=== PATIENT | female | born 1960 | race Caucasian/White ===

== ENCOUNTER 2017-01-02 12:55 | Inpatient (IN) | payer OTHER ==
--- NOTE | ~2017-01-02 | DS ---
Unit #: [id number] #: [id number] Patient: YULIANA RO [id number] [facility] [address] [place] [address] [id number] MR#: [id number] NAME: YULIANA RO ROOM: [facility] Age: 56 Sex: F Admission Date: 01/02/2017 : 1960 Discharge Date: 01/09/2017 Attending Physician: Hilton Wallace M.D. DISCHARGE SUMMARY REASON FOR ADMISSION Hallucination. DIAGNOSTIC STUDIES LABORATORY RESULTS: Remarkable for glucose 111 and hematocrit 46.2. HOSPITAL COURSE The patient was admitted to inpatient unit on 01/02/2017 and discharged on 01/09/2017. The patient was treated on the inpatient unit with group therapy, individual therapy, and medication management. The patient responded well with the above modalities of treatment. Subsequently, the patient was discharged with a plan to follow up in outpatient program. DISCHARGE MEDICATIONS Seroquel 100 mg at bedtime for mood stabilization and psychosis, Lamictal 100 mg once daily for mood stabilization, Lotensin 10 mg daily for hypertension, Pepcid 20 mg daily for GERD, Abilify 10 mg b.i.d. for psychosis, and Oretic 25 mg daily for hypertension. DISCHARGE DIAGNOSES Psychiatric: Schizophrenia, chronic paranoid type. Secondary diagnosis: Deferred. Medical diagnosis: Hypertension. Stressors: Psychosocial stressors. DISCHARGE INSTRUCTIONS The patient is to follow up in outpatient clinic as per director of social media marketing. CONDITION ON DISCHARGE The patient was pleasant and cooperative. Denied any psychotic symptom or any suicidal ideation. PROGNOSIS Guarded. DIET AND ACTIVITY As tolerated. Dictated by... Unit #: [id number] #: [id number] Patient: YULIANA RO Guerrero Mckay/aamir TD: 01/10/2017 21:42 JOB #: [id number] DISCHARGE SUMMARY Page 1 of 1 X Hilton Wallace MD X DISCHARGE SUMMARY
--- NOTE | ~2017-01-02 | HP ---
Unit #: [id number] #: [id number] Patient: YULIANA RO [id number] [place] [address] [id number] MR#: [id number] NAME: YULIANA RO ROOM: [facility] Age: 56 Sex: F Admission Date: 01/02/2017 : 1960 Attending Physician: Hilton Wallace M.D. Admitting Physician: Hilton Wallace M.D. Primary Care Physician: Generic Doctor Not In System HISTORY AND PHYSICAL HISTORY OF PRESENT ILLNESS Yuliana is a 56 year old, admitted to 2 [facility] because of recent incoherent speech pattern observed by her family. PAST MEDICAL HISTORY 1. High blood pressure. 2. Chronic obstructive pulmonary disease. PAST SURGICAL HISTORY Cholecystectomy. ALLERGIES Penicillin. SOCIAL HISTORY She denies cigarettes, alcohol, or illicit drug use. FAMILY HISTORY Medically noncontributory. REVIEW OF SYSTEMS She does not answer questions appropriately. There are no reports of nausea, vomiting, or diarrhea. She has no cough or increased temperature. No complaints of shortness of breath or indications of chest pain. CURRENT MEDICATIONS 1. Pepcid 20 mg q.h.s. 2. Seroquel 100 mg q.h.s. 3. Trazodone 75 mg q.h.s., p.r.n. 4. Milk of magnesia p.r.n. 5. Maalox p.r.n. 6. Tylenol p.r.n. 7. Lotensin 10 mg daily 8. Lamictal 100 mg daily PHYSICAL EXAMINATION GENERAL: Alert, obese, no apparent distress. VITAL SIGNS: Blood pressure 124/74, heart rate 80, respirations 16, temperature 98.6. WEIGHT: 180 pounds. HEIGHT: 5 feet 4 inches. SKIN: Warm and dry without rash or lesion. HEENT: Normocephalic. TMs not viewed. Oral and nasal passages clear. Unit #: [id number] #: [id number] Patient: YULIANA RO Conjunctivae clear. PERRLA. EOMs intact. NECK: Supple without lymphadenopathy or thyromegaly. HEART: Regular rate and rhythm without murmur. LUNGS: Clear. ABDOMEN: Soft, nontender. : Not done. EXTREMITIES: No evidence of cyanosis, clubbing or edema. Moves all without focal deficit. NEUROLOGICAL: Unable to complete extended exam. She does move all extremities without focal deficit. 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 IMPRESSION Psychiatric admission. RECOMMENDATIONS Psychiatric, per psychiatrist. MEDICAL I see no contraindications to participating in facility's activities. MEDICAL PROGNOSIS Good. MEDICAL CONDITION Stable. Dictated by... Keira Perez P.A.-C. for Guerrero Kumar/spencer TD: 01/03/2017 11:07 JOB #: [id number] HISTORY AND PHYSICAL Page 1 of 1 X Keira Perez X HISTORY AND PHYSICAL
--- NOTE | ~2017-01-02 | PN ---
Unit #: [id number] #: [id number] Patient: YULIANA RO [id number] [facility] [address] [place] [address] [id number] I MR#: [id number] NAME: YULIANA RO ROOM: [facility] Age: 56 Sex: F Admission Date: 01/02/2017 : 1960 Attending Physician: Hilton Wallace M.D. Admitting Physician: Hilton Wallace M.D. Primary Care Physician: Generic Doctor Not In System [facility] PROGRESS NOTES DATE 01/07/2017 DISCUSSION Yuliana Ro is a 56-year-old female, seen on 01/07/2017. The patient interviewed, chart reviewed, and obtained information from the nursing staff. The patient was compliant and cooperative. Mood sad and dysphoric. The patient reports medication is helping her, making progress. The patient was able to participate in programming, denied any side effects from medication. REVIEW OF SYSTEMS Complete review of systems unremarkable. MENTAL STATUS EXAMINATION General appearance: Patient dressed casually. Attention span and concentration, fair. Oriented to place and person. Mood and affect, sad and dysphoric. Speech, monotone. Thought process, concrete, guarded, and paranoid. The patient denied any thoughts of harming self or others. Recent and remote memory, poor. Insight and judgment, poor. DIAGNOSES 1. Psychosis, NOS. 2. Rule out schizophrenia. ASSESSMENT/PLAN Advised to continue with the current medication and therapeutic protocol and will monitor response to medication, and make further adjustment of medication if needed. Consider further adjustment of medication. Dictated by... Guerrero Mckay/spencer TD: 01/09/2017 08:08 JOB #: [id number] Unit #: [id number] #: [id number] Patient: YULIANA RO [facility] PROGRESS NOTES Page 1 of 1 X Hilton Wallace MD PROGRESS NOTE
--- NOTE | ~2017-01-02 | PN ---
Unit #: [id number] #: [id number] Patient: YULIANA RO [id number] [facility] [address] [place] [address] [id number] I MR#: [id number] NAME: YULIANA RO ROOM: [facility] Age: 56 Sex: F Admission Date: 01/02/2017 : 1960 Attending Physician: Hilton Wallace M.D. Admitting Physician: Hilton Wallace M.D. Primary Care Physician: Sai Doctor Not In System [facility] PROGRESS NOTES DATE OF SERVICE: 01/05/2017 DISCUSSION Ms. Yuliana Ro is a 46-year-old female. The patient reports she is feeling better. Medication is helping her currently on Abilify 10 mg b.i.d., Pepcid, Seroquel 100 mg at bedtime, and trazodone. The patient also takes Lotensin and Lamictal. The patient is tolerating medication fairly well, making progress, but still isolative, guarded, paranoid. REVIEW OF SYSTEMS Complete review of systems unremarkable. MENTAL STATUS EXAMINATION General appearance, the patient dressed casually. Attention span and concentration, fair, guarded, paranoid. Mood and affect, labile. Speech, monotone. Thought process, concrete. The patient denied any thoughts of harming self or others, but guarded, paranoid. Recent and remote memory, poor. Insight and judgment, poor. DIAGNOSIS Schizoaffective disorder. ASSESSMENT AND PLAN Advised to continue with current medication and therapeutic protocol. We will monitor response to medication and make further adjustment of medication. Dictated by... Guerrero Mckay/aamir TD: 01/05/2017 19:15 JOB #: [id number] Unit #: [id number] #: [id number] Patient: YULIANA RO PROGRESS NOTES Page 1 of 1 X Hilton Wallace MD PROGRESS NOTE
--- NOTE | ~2017-01-02 | PA ---
Unit #: [id number] #: [id number] Patient: YULIANA RO [id number] [facility] [address] [place] [address] [id number] I MR#: [id number] NAME: YULIANA RO ROOM: [facility] Age: 56 Sex: F Admission Date: 01/02/2017 : 1960 Date of Assessment: 01/03/2017 Attending Physician: Hilton Wallace M.D. Admitting Physician: Hilton Wallace M.D. Primary Care Physician: Generic Doctor Not In System PSYCHIATRIC ASSESSMENT INFORMANTS The patient reliability, fair informant and chart reliability, good. CHIEF COMPLAINT Depression. HISTORY OF PRESENT ILLNESS Yuliana Ro is a 56-year-old female, seen on 2-[facility]. The patient has a history of previous inpatient treatment at [facility] and outpatient with Dr. Cook. The patient lives at home with her . Reported diagnosed with schizophrenia. The patient reports taking multiple medications for her schizophrenia as well as for memory. The patient reports needing medication to be changed. The patient was not clear in giving history. The patient's reported that the patient being off from baseline for the past several months. reported that the patient is not making any sense, not being able to recall anything, not being able to be left alone due to safety. The patient's reported medication has been changed and does not feel that she is still doing any good. The patient's is concerned about the patient's behavior and that the patient is not doing well. The patient unable to give any coherent history. The patient seems to be attending to internal stimuli, thoughts disorganized. Denied any current suicidal or homicidal ideation. The patient needing inpatient admission at this time for worsening of psychotic symptom and disorganized behavior. PAST PSYCHIATRIC HISTORY Remarkable for history of inpatient treatment at [facility] and outpatient followup. FAMILY HISTORY AND SOCIAL HISTORY The patient lives with her and carries a diagnosis of schizophrenia. Family psychiatric illness is remarkable for history of substance abuse and mental illness on both sides of the family. MEDICAL HISTORY Remarkable for history of hypertension. Musculoskeletal; muscle strength and tone, no atrophy or abnormal movement. Gait normal. MEDICATION HISTORY The patient is currently on Namenda, Lamictal, Pepcid 20 mg daily, Seroquel 100 mg at bedtime, trazodone 75 mg q.h.s. p.r.n. for sleep, and Lotensin 10 mg daily. Unit #: [id number] #: [id number] Patient: YULIANA RO ALLERGIES No known drug allergies. SUBSTANCE ABUSE HISTORY None. REVIEW OF SYSTEMS HEENT: Eyes, clear. Ears, nose, mouth, and throat; clear. CARDIOVASCULAR: Unremarkable. RESPIRATORY: Unremarkable. GI: Unremarkable. : Unremarkable. SKIN: Unremarkable. LYMPH NODE: Unremarkable. NEUROLOGIC: Unremarkable. ENDOCRINE: Unremarkable. HEMATOLOGIC: Unremarkable. ALLERGIC/IMMUNOLOGIC: Unremarkable. MUSCULOSKELETAL: Muscle strength and tone, no atrophy or abnormal movement. Gait normal. MENTAL STATUS EXAMINATION CONSTITUTIONAL: Measurement of vital signs; temperature 98.5, heart rate 82, respiratory rate 17, blood pressure 125/74, height 5 feet 4 inches, and weight 180 pounds. GENERAL APPEARANCE: The patient dressed casually. The patient did not show any facial deformity. MUSCULOSKELETAL: Please see above. PSYCHIATRIC EXAMINATION Description of speech; regular rate, normal volume, normal articulation, coherent, and spontaneous. Description of thought process, goal directed. Description of association, intact. Description of abnormal psychotic thinking; the patient is delusional, paranoid, and attending to internal stimuli, but denied any thoughts of harming self or others. Description of the patient's judgment: Concerning everyday activity, poor. Social situation, poor. Concerning psychiatric condition, poor. Complete mental status examination; oriented in time, place, and person. Recent and remote memory, poor. Attention span and concentration, poor. Language, able to name object and repeat phrases. Fund of knowledge, fair. Mood and affect, sad and dysphoric. Insight and judgment, fair to poor. ASSETS AND LIABILITIES Assets, the patient is articulate and able to take care of her ADL. Liability, depression and psychosis. ADMITTING DIAGNOSES Psychiatric: Psychosis, not otherwise specified, F29.0; rule out schizophrenia, F20.0; and rule out cognitive deficit. Secondary diagnosis: Deferred. Medical diagnoses: Gastroesophageal reflux disease and hypertension. Stressors: Psychosocial stressors. Unit #: [id number] #: [id number] Patient: YULIANA RO PSYCHIATRIC PLAN AND TREATMENT GOAL AND DISCHARGE PLAN 1. Advised to admit the patient on the inpatient unit. Provide safe, supportive, and structured environment. 2. Ordered labs; CBC, CMP, UA, and UDS. 3. Advised to continue with current medication with a plan to stop Namenda. If needed, consider further adjustment of medication and consider alternative medication such as Abilify, so that medication can be changed to injectable long-acting medication. The patient to attend all the programing, group therapy, individual therapy, and medication management. If needed, consider further adjustment of medication and family therapy. TREATMENT GOAL To attain euthymic mood, gain insight into her problem, learn coping skills, and control psychotic symptom. DISCHARGE PLAN Plan to stabilize the patient and consider followup in outpatient program. ESTIMATED LENGTH OF STAY 2 weeks. Dictated by... Hilton Wallace M.D. CHRISTIANO/aamir TD: 01/03/2017 16:05 JOB #: [id number] PSYCHIATRIC ASSESSMENT Page 1 of 1 X Hilton Wallace MD X PSYCHIATRIC ASSESSMENT
--- NOTE | ~2017-01-02 | PN ---
Unit #: [id number] #: [id number] Patient: YULIANA RO [id number] [facility] [address] [place] [address] [id number] I MR#: [id number] NAME: YULIANA RO ROOM: [facility] Age: 56 Sex: F Admission Date: 01/02/2017 : 1960 Attending Physician: Hilton Wallace M.D. Admitting Physician: Hilton Wallace M.D. Primary Care Physician: Generic Doctor Not In System [facility] PROGRESS NOTES DATE OF SERVICE: 01/03/2017 DISCUSSION Yuliana Ro is a 56-year-old female. The patient interviewed, chart reviewed, and obtained information from nursing staff. The patient was compliant and cooperative. Mood was sad, dysphoric, flat affect, guarded. The patient was somewhat disorganized, disorganized thought process, guarded. Complete review of systems unremarkable. MENTAL STATUS EXAMINATION General appearance, the patient dressed in hospital attire. Attention span and concentration, poor. Oriented in place and person. Mood and affect; flat, sad, dysphoric. Speech; monotone, long pauses. Thought process; circumstantial, guarded. The patient denied any thoughts of harming self or others, but attending to internal stimuli, disorganized behavior, disorganized thought process. Recent and remote memory, poor. Insight and judgment, poor. DIAGNOSES 1. Psychosis, not otherwise specified. 2. Rule out schizophrenia, chronic paranoid type. 3. Rule out cognitive deficit. ASSESSMENT AND PLAN Advised to continue with current medication and therapeutic protocol. We will monitor response to medication and plan to consider switching the patient from Seroquel to Abilify so that the patient can be switched to long-acting medication. Dictated by... Guerrero Mckay/jasminel TD: 01/03/2017 17:20 JOB #: [id number] Unit #: [id number] #: [id number] Patient: YULIANA RO PROGRESS NOTES Page 1 of 1 X Hilton Wallace MD PROGRESS NOTE
--- NOTE | ~2017-01-02 | PN ---
Unit #: [id number] #: [id number] Patient: YULIANA RO [id number] [facility] [address] [place] [address] [id number] I MR#: [id number] NAME: YULIANA RO ROOM: [facility] Age: 56 Sex: F Admission Date: 01/02/2017 : 1960 Attending Physician: Hilton Wallace M.D. Admitting Physician: Guerrero Mckay PROGRESS NOTES DATE OF SERVICE: 01/06/2017 DISCUSSION Yuliana Ro is a 56-year-old female, seen on 01/06/2017. The patient interviewed, chart reviewed, and obtained information from nursing staff. The patient was compliant and cooperative. Mood was sad, dysphoric, flat affect, guarded. The patient still having paranoia, but making progress. REVIEW OF SYSTEMS Complete review of systems unremarkable. MENTAL STATUS EXAMINATION General appearance, the patient dressed casually. Attention span and concentration, fair. Oriented in place and person. Mood and affect were sad, dysphoric, and guarded. The patient denied any thoughts of harming self or others or any psychotic symptom, but still guarded and paranoid. Insight and judgment, fair to poor. DIAGNOSIS Schizoaffective disorder, bipolar type. ASSESSMENT AND PLAN Advised to continue with current medication and therapeutic protocol. We will monitor response to medication and make further adjustment of medication. Dictated by... Hilton Wallace M.D. SZC/jasminel TD: 01/08/2017 01:16 JOB #: [id number] Unit #: [id number] #: [id number] Patient: YULIANA RO PROGRESS NOTES Page 1 of 1 X Hilton Wallace MD PROGRESS NOTE
--- NOTE | ~2017-01-02 | PN ---
Unit #: [id number] #: [id number] Patient: YULIANA RO [id number] [facility] [address] [place] [address] [id number] I MR#: [id number] NAME: YULIANA RO ROOM: [facility] Age: 56 Sex: F Admission Date: 01/02/2017 : 1960 Attending Physician: Hilton Wallace M.D. Admitting Physician: Hilton Wallace M.D. Primary Care Physician: Generic Doctor Not In System [facility] PROGRESS NOTES DATE OF SERVICE: 01/04/2017 DISCUSSION Ms. Yuliana Ro is a 56-year-old female. The patient interviewed, chart reviewed, and obtained information from nursing staff. The patient was compliant and cooperative. Mood was sad, dysphoric, flat affect, guarded, seclusive. Tolerating medication fairly well. Complete review of systems unremarkable. MENTAL STATUS EXAMINATION General appearance, the patient dressed casually. Attention span and concentration, fair. Oriented in place and person. Mood and affect were labile, guarded. Speech, monotone. Thought process; concrete, guarded, paranoid, still having somewhat disorganized thought process, but reports medication is helping her. Recent and remote memory, poor. Insight and judgment, poor. DIAGNOSES 1. Psychosis, not otherwise specified. 2. History of dementia. ASSESSMENT AND PLAN Advised to continue with current medication and therapeutic protocol. We will monitor response to medication and make further adjustment of medication. Dictated by... Guerrero Mckay/aamir TD: 01/04/2017 19:08 JOB #: [id number] Unit #: [id number] #: [id number] Patient: YULIANA RO PEAMICHAEL PROGRESS NOTES Page 1 of 1 X Hilton Wallace MD PROGRESS NOTE
--- NOTE | ~2017-01-02 | PN ---
Unit #: [id number] #: [id number] Patient: YULIANA RO [id number] [facility] [address] [place] [address] [id number] I MR#: [id number] NAME: YULIANA RO ROOM: [facility] Age: 56 Sex: F Admission Date: 01/02/2017 : 1960 Attending Physician: Hilton Wallace M.D. Admitting Physician: Hilton Wallace M.D. Primary Care Physician: Generic Doctor Not In System [facility] PROGRESS NOTES DATE 01/08/2017 DISCUSSION Ms. Yuliana Ro is a 56-year-old female seen on 01/08/2017. Patient interviewed. Chart reviewed. Obtained information from nursing staff. Patient reports making progress. Decrease in anxiety, depression. Medication is helping, maintaining safe behavior. Complete review of system unremarkable. MENTAL STATUS EXAMINATION General appearance, patient dressed casually. Attention span, concentration fair. Oriented in place and person. Mood and affect was labile. Speech monotone. Thought process concrete. Patient denied any thoughts of harming self or others. Denied any psychotic symptoms but seclusive, isolative. Recent and remote memory poor. Insight and judgement poor. DIAGNOSES 1. Psychosis NOS. 2. Rule out schizophrenia. ASSESSMENT/PLAN Continue with the current medication and therapeutic protocol. If needed, consider further adjustment of medication. Dictated by... Guerrero Mckay/juan TD: 01/09/2017 17:15 JOB #: [id number] Unit #: [id number] #: [id number] Patient: YULIANA RO PROGRESS NOTES Page 1 of 1 X Hilton Wallace MD PROGRESS NOTE
[2017-01-03 09:38] LABS: URINE APPEARANCE CLEAR; URINE BILIRUBIN NEG (NEG); URINE BLOOD NEG (NEG); URINE COLOR YELLOW; URINE GLUCOSE NEG (NEG); URINE KETONE NEG (NEG); URINE LEUKOCYTE ESTERASE NEG (NEG); URINE NITRATE NEG (NEG); URINE PH 6.5 (5-8); URINE PROTEIN NEG (NEG); URINE SPECIFIC GRAVITY 1.016 (1.003-1.035); URINE UROBILINOGEN 0.2 MG/DL (NEG)
[2017-01-03 09:39] LABS: BASOPHIL# 0.1 X10e3 (0-0.3); BASOPHIL% 1.4 % (0-2.5); EOSINOPHIL# 0.1 X10e3 (0-0.7); EOSINOPHIL% 1.5 % (0.0-7.0); HEMATOCRIT 46.2 % (35.0-45.0); HEMOGLOBIN 15.1 gm/dL (12.0-16.0); LYMPHOCYTE# 1.6 X10e3 (1.0-3.5); LYMPHOCYTE% 25.9 % (17.0-45.0); MEAN CELL VOLUME 96.6 FL (83-96); MEAN CORPUSCULAR HEMOGLOBIN 31.6 PG (28-34); MEAN CORPUSCULAR HGB CONC 32.7 g/dL (30-36); MONOCYTE# 0.5 X10e3 (0-1.0); MONOCYTE% 7.6 % (3.0-12.0); NEUTROPHIL# 3.9 X10e3 (1.5-7.1); NEUTROPHIL% 63.6 % (40-75); PLATELET COUNT 182 X10e3 (140-420); RED BLOOD COUNT 4.78 X10e (3.90-5.30); WHITE BLOOD COUNT 6.2 X10e3 (4.0-10.5)
[2017-01-03 09:48] LABS: DIFF IND NO
[2017-01-03 10:01] LABS: THYROID STIMULATING HORMONE 1.2 uIU/ml (0.34-5.60)
[2017-01-03 10:09] LABS: FREE THYROXIN (T4) 0.9 ng/dL (0.58-1.64)
[2017-01-03 10:21] LABS: AMPHETAMINE NEG (NEG); BARBITURATES NEG (NEG); BENZODIAZEPINES NEG (NEG); COCAINE NEG (NEG); MARIJUANA NEG (NEG); OPIATES NEG (NEG); TRICYCLIC ANTIDEPRESSANTS NEG (NEG); U METHADONE NEG (NEG)
[2017-01-03 10:24] LABS: ALBUMIN SERUM 4.1 g/dL (3.5-5.0); BILIRUBIN,TOTAL 0.5 mg/dL (0.2-2.0); BUN/CREATININE RATIO 17.5; CALCIUM SERUM 9.7 mg/dL (8.4-10.2); CREATININE SERUM 0.8 mg/dL (0.6-1.4); GLOM FILT RATE Estimated 81.9 mL/min (>60); POTASSIUM 4.1 mmol/L (3.5-5.1); PROTEIN TOTAL SERUM 6.9 g/dL (6.0-8.3)
== END 2017-01-09 11:30 | disposition home or self-care (01) | DRG 885 ==
LOC: P2L 12:55
PROVIDERS: Psychiatry & Neurology Psychiatry
DX: F25.0 Schizoaffective disorder, bipolar type (principal); F03.90 Unspecified dementia, unspecified severity, without behavioral disturbance, psychotic disturbance, mood disturbance, and anxiety; F29 Unspecified psychosis not due to a substance or known physiological condition; I10 Essential (primary) hypertension; R41.89 Other symptoms and signs involving cognitive functions and awareness; K21.9 Gastro-esophageal reflux disease without esophagitis; Z81.8 Family history of other mental and behavioral disorders; Z90.49 Acquired absence of other specified parts of digestive tract; J44.9 Chronic obstructive pulmonary disease, unspecified; Z88.0 Allergy status to penicillin
CPT/HCPCS: 80053; 80307; 81003; 84439; 84443; 85025